=== PATIENT | male | born 1995 | race Caucasian/White ===

== ENCOUNTER 2016-10-05 11:23 | Emergency (ER) ==
[2016-10-05 11:27] VITALS: BP 148/87; TEMP 98.3; BMI 35.6
[2016-10-05] MEDS ORDERED: LIDOCAINE 1 % AMP 5 ML (SUTURES) SUBCUT STA (11:39)
[2016-10-05] MEDS ORDERED: LIDOCAINE 1 % AMP 5 ML (SUTURES) ONE (11:40)
--- NOTE | 2016-10-05 11:45 | ED.PDOC ---
General ED Provider: Dr. RASHEED PONCE Chief Complaint: Laceration Stated Complaint: laceration flexor side left forearm Time Seen by Physician: 11:26 (see photos zulmaus is UTD PER PT) Mode of Arrival: Walk-In Information Source: Patient Exam Limitations: No limitations Primary Care Provider: MAN FERRER Nursing and Triage Documentation Reviewed and Agree: Yes Skin Complaint Exam - Laceration/Upper Ext. Complaint/Exam Location of Injury: Left (FOREARM) Mechanism of Injury: Laceration Symptoms Are: Still present Initial Severity: Mild Current Severity: None Aggravating: None Alleviating: None Associated Signs and Symptoms: Denies: Fever, Chills, Erythema, Numbness, Tingling Differential Diagnoses: Laceration Review of Systems - Review Of Systems Constitutional: Reports: No symptoms Eyes: Reports: No symptoms Ears, Nose, Mouth, Throat: Reports: No symptoms Respiratory: Reports: No symptoms Cardiac: Reports: No symptoms GI: Reports: No symptoms : Reports: No symptoms Musculoskeletal: Reports: No symptoms Skin: Reports: No symptoms Neurological: Reports: Other (LACERATION LEFT FOREARM) Endocrine: Reports: No symptoms Hematologic/Lymphatic: Reports: No symptoms All Other Systems: Reviewed and Negative Past Medical History - Past Medical History Previously Healthy: Yes Endocrine: Reports: None Cardiovascular: Reports: None Respiratory: Reports: None Hematological: Reports: None Gastrointestinal: Reports: None Genitourinary: Reports: None Neuro/Psych: Reports: None Musculoskeletal: Reports: None Cancer: Reports: None - Surgical History General Surgical History: Reports: None - Family History Family History: Reports: None - Social History Smoking Status: Never smoker Hx Substance Use: No Alcohol Screening: None - Immunizations Tetanus Shot up to Date: Yes (3 1/2 years ago) Physical Exam - Physical Exam Appearance: Well-appearing, No pain distress, Well-nourished Eyes: RIKY, EOMI, Conjunctiva clear ENT: Ears normal, Nose normal, Oropharynx normal Respiratory: Airway patent, Breath sounds clear, Breath sounds equal, Respirations nonlabored Cardiovascular: RRR, Pulses normal, No rub, No murmur GI/: Soft, Nontender, No masses, Bowel sounds normal, No Organomegaly Musculoskeletal: Normal strength, ROM intact, No edema, No calf tenderness Skin: Warm, Dry (LACERATION FOREARM SEE PHOTOS) Neurological: Sensation intact, Motor intact, Reflexes intact, Cranial nerves intact, Alert, Oriented Psychiatric: Affect appropriate, Mood appropriate Procedures - Laceration/Wound Repair No standard instances Wound Description: Linear Wound Length (cm): 1CM Wound Width: 3MM Wound Depth: 2MM Wound Explored: Clean Wound Irrigated: No Wound Prep: Saline, Hibiclens Anesthesia: Lidocaine (4 ML PLAIN) Wound Debrided: NONE NEEDED Undermining: Minimal Wound Margins: Revised Wound Repaired With: Sutures Suture Size and Type: 3 NYLON Number of Sutures: 4 Number of [place]: 0 Critical Care Note - Critical Care Note Total Time (mins): 0 Course - Course Orders, Labs, Meds: Orders Category Date Time Status Lidocaine HCl/Pf [Lidocaine 1 % Amp 5 ml (Sutures)] MEDS 10/05/16 11:40 Discontinued 5 ml .ROUTE .STK-MED ONE Lidocaine HCl/Pf [Lidocaine 1 % Amp 5 ml (Sutures)] MEDS 10/05/16 11:39 Stat 5 ml SUBCUT ONCE STA Medications Discontinued Medications Generic Name Dose Route Start Last Admin Trade Name Freq PRN Reason Stop Dose Admin Lidocaine HCl 5 ml 10/05/16 11:39 Lidocaine 1 % Amp 5 Ml (Sutures) SUBCUT 10/05/16 11:40 ONCE STA Vital Signs: Temp Pulse Resp BP Pulse Ox 10/05/16 11:24 98.3 F 72 20 148/87 H 98 Departure - Departure Time of Disposition: 11:46 Disposition: HOME SELF-CARE Discharge Problem: Laceration - injury Instructions: Laceration (ED), Care For Your Stitches (ED) Condition: Good Pt referred to PMD for follow-up: Yes Additional Instructions: Please call your Family Physician as soon as possible to schedule a follow-up appointment. Allergies/Adverse Reactions: Allergies No Known Allergies Allergy (Verified 10/05/16 11:27) Home Medications: Ambulatory Orders 1 [No Reported Medications] 10/05/16 Disposition Discussed With: Patient
== END 2016-10-05 12:10 | disposition home or self-care (01) ==
LOC: ED 11:23
DX: S51.812A Laceration without foreign body of left forearm, initial encounter (principal); W45.8XXA Other foreign body or object entering through skin, initial encounter
CPT/HCPCS: 99283